=== PATIENT | female | born 1975 | race Asian ===

== ENCOUNTER 2024-12-06 07:43 | Inpatient (IN) | payer MEDICAID ==
[~2024-12-06] VITALS: Ht 149.9 cm; Wt 73.5 kg
[2024-12-06 13:45] LABS: GLUCOMETER DEV NAME(LOC) POC.BV; POC SARS-COV2 AG, FIA NEGATIVE (NEGATIVE)
[2024-12-06 14:00] VITALS: BP 140/89; PULSE 80; RESP 16; TEMP 97.8; O2SAT 100
[2024-12-06] MEDS: FOLIC ACID 1 MG TABLET PO SCH (17:24)
[2024-12-06] MEDS: BACITRACIN 28 GM OINTMENT TP SCH (17:25)
[2024-12-06] MEDS ORDERED: ALBUTEROL SULFATE HFA 90 MCG/PUFF 8 GM INHALER IH PRN (20:00)
[2024-12-06] MEDS ORDERED: NICOTINE 14 MG/24 HOUR PATCH TD PRN (20:00)
[2024-12-06] MEDS ORDERED: ACETAMINOPHEN 325 MG TABLET PO PRN (20:00)
[2024-12-06] MEDS ORDERED: MAGNESIUM HYDROXIDE SUSPENSION 30 ML UDCUP PO PRN (20:00)
[2024-12-06] MEDS ORDERED: LOPERAMIDE HCL 2 MG CAPSULE PO PRN (20:00)
[2024-12-06] MEDS ORDERED: MAG HYDROX/ALUMINUM HYD/SIMETH ES 30 ML SUSPENSION UDCUP PO PRN (20:00)
[2024-12-06] MEDS ORDERED: DOCUSATE SODIUM 100 MG CAPSULE PO PRN (20:00)
[2024-12-06] MEDS ORDERED: GuaiFENesin/D-METHORPHAN [SUGAR-FREE] 200-20MG/10 ML SYRUP UDCUP PO PRN (20:00)
[2024-12-06] MEDS ORDERED: ONDANSETRON 4 MG TABLET PO PRN (20:00)
[2024-12-06 20:37] VITALS: BP 113/69; PULSE 72; RESP 17; TEMP 98.3; O2SAT 98
[2024-12-06] MEDS: ATORVASTATIN CALCIUM 10 MG TABLET PO SCH (21:21)
[2024-12-07] MEDS: ZOLPIDEM TARTRATE 10 MG TABLET PO PRN (00:14)
[2024-12-07 08:40] VITALS: BP 124/80; PULSE 71; RESP 16; TEMP 98; O2SAT 98
[2024-12-07 09:07] LABS: PLATELET COUNT (AUTO) 329 K/uL (150-450); RED BLOOD CELL COUNT(AUTO) 4.38 MIL/uL (4.00-5.20); RED CELL DISTRIBUTION WIDTH 14.0 % (11.5-14.5); WHITE BLOOD COUNT (AUTO) 5.1 K/uL (4.5-11.0)
[2024-12-07 09:35] LABS: ASPARTATE AMINOTRANSFERASE 18 U/L (15-37); CALCIUM, TOTAL 9.0 mg/dL (8.8-10.5); CHOL/HDL RATIO 2.9 (3.9-5.7); CREATININE 0.92 mg/dL (0.60-1.30); GLOMERULAR FILTR. RATE CALC > 60 mL/min (>60); GLUCOSE,RANDOM 114 mg/dL (70-110); HCG,QUANTITATIVE 1 mIU/mL (0-6); LDL CHOL (CALC.) 115 mg/dL (0-130); SODIUM SERUM 137 mmol/L (136-145); TOTAL PROTEIN, SERUM 7.4 g/dL (6.4-8.2); UREA NITROGEN, BLOOD 7 mg/dL (7-18)
[2024-12-07 09:45] LABS: APPEARANCE,URINE HAZY (CLEAR); GLUCOSE, URINE (UA) NEGATIVE (NEGATIVE); LEUKOCYTE ESTERASE ,URINE NEGATIVE (NEGATIVE); NITRATE,URINE NEGATIVE (NEGATIVE); OCCULT BLOOD,URINE NEGATIVE (NEGATIVE); PH,URINE DRUG SCREEN 6.0 (5.0-8.0); SPECIFIC GRAVITIY, URINE 1.028 (1.003-1.030)
[2024-12-07 09:53] LABS: AMPHET/METH SCREEN,URINE NEGATIVE (NEGATIVE); BARBITURATE SCREEN, URINE NEGATIVE (NEGATIVE); CANNABINOID SCREEN,URINE POSITIVE (NEGATIVE); COCAINE SCREEN,URINE NEGATIVE (NEGATIVE); METHADONE SCREEN, URINE NEGATIVE (NEGATIVE)
[2024-12-07 10:02] LABS: ALCOHOL, URINE DRUG SCREEN NEGATIVE (NEGATIVE)
[2024-12-07] MEDS ORDERED: LITHIUM CARBONATE 600 MG CAPSULE PO SCH (11:15)
[2024-12-07] MEDS ORDERED: LITH600C PO (11:16)
[2024-12-07] MEDS ORDERED: QUET100T34 PO (11:16)
[2024-12-07] MEDS ORDERED: QUET300T19 PO (11:16)
[2024-12-07] MEDS: LITHIUM CARBONATE 300 MG CAPSULE PO SCH (12:16)
[2024-12-07] MEDS: NICOTINE POLACRILEX 2 MG LOZENGE PO PRN (12:36)
[2024-12-07 20:24] VITALS: RESP 18
[2024-12-08] MEDS: ETHYL ALCOHOL 62% ANTISEPTIC NASAL SANITIZER 0.6 ML AMPUL NASAL ONE (08:47)
[2024-12-08 10:35] VITALS: BP 125/69; PULSE 99; RESP 17; TEMP 98.7; O2SAT 95
[2024-12-08 20:25] VITALS: BP 110/71; PULSE 68; RESP 17; TEMP 98.2; O2SAT 99
[2024-12-08] MEDS: CHLORHEXIDINE GLUCONATE 2% TOWELETTE [2'S/6'S] TP SCH (21:17)
[2024-12-08] MEDS: ETHYL ALCOHOL 62% ANTISEPTIC NASAL SANITIZER 0.6 ML AMPUL NASAL SCH (21:17)
[2024-12-09 08:38] VITALS: BP 122/84; PULSE 95; RESP 18; TEMP 98.1; O2SAT 98
[2024-12-09 20:14] VITALS: BP 125/89; PULSE 84; RESP 18; TEMP 98.1; O2SAT 100
[2024-12-10 08:10] VITALS: BP 114/88; PULSE 92; RESP 17; TEMP 98.1; O2SAT 98
[2024-12-10] MEDS: PETROLATUM,WHITE 28 GM JELLY TP PRN (10:09)
[2024-12-10 20:05] VITALS: BP 118/82; PULSE 87; RESP 17; TEMP 98; O2SAT 99
[2024-12-11 08:39] VITALS: BP 104/68; PULSE 78; RESP 18; TEMP 97.9; O2SAT 100
[2024-12-11 20:10] VITALS: BP 108/71; PULSE 72; RESP 17; TEMP 99.7; O2SAT 97
[2024-12-12 08:14] VITALS: BP 99/62; PULSE 73; RESP 17; TEMP 98.1; O2SAT 98
[2024-12-12 20:10] VITALS: BP 120/74; PULSE 88; RESP 17; TEMP 98.6; O2SAT 99
[2024-12-13 08:23] VITALS: BP 102/86; PULSE 86; RESP 18; TEMP 98.1; O2SAT 100
[2024-12-13] MEDS: NICOTINE POLACRILEX 2 MG LOZENGE PO PRN (12:26)
[2024-12-13] MEDS: PREGABALIN 75 MG CAPSULE PO SCH (16:54)
[2024-12-13 20:07] VITALS: BP 124/84; PULSE 100; RESP 18; TEMP 97.9; O2SAT 99
[2024-12-14 08:15] VITALS: BP 111/85; PULSE 97; RESP 17; TEMP 98.4; O2SAT 100
[2024-12-14] MEDS ORDERED: LITH300C3 PO (11:35)
[2024-12-14] MEDS ORDERED: QUET100T PO (11:36)
[2024-12-14] MEDS ORDERED: QUET300T2 PO (11:36)
[2024-12-14] MEDS ORDERED: AMLO-258 PO (12:21)
[2024-12-14] MEDS ORDERED: ATOR10TA69 PO (12:21)
[2024-12-14] MEDS ORDERED: PREG75 PO (12:21)
== END 2024-12-14 17:21 | disposition home or self-care (01) | DRG 761 ==
LOC: B2S 12:40
PROVIDERS: ADMIT Psychiatry & Neurology Psychiatry; ATTEND Psychiatry & Neurology Psychiatry
PROC: GZHZZZZ Group Psychotherapy (ICD-10-PCS; principal; 2024-12-07)
PROC: GZ52ZZZ Individual Psychotherapy, Cognitive (ICD-10-PCS; 2024-12-07)
DX: F25.1 Schizoaffective disorder, depressive type (principal); R45.851 Suicidal ideations; E78.5 Hyperlipidemia, unspecified; I10 Essential (primary) hypertension; F43.12 Post-traumatic stress disorder, chronic; Z96.651 Presence of right artificial knee joint; Z20.822 Contact with and (suspected) exposure to COVID-19; G89.29 Other chronic pain; Z59.00 Homelessness unspecified; Z79.899 Other long term (current) drug therapy; Z88.6 Allergy status to analgesic agent; Z91.51 Personal history of suicidal behavior; M19.90 Unspecified osteoarthritis, unspecified site
CPT/HCPCS: 80053; 80061; 80178; 80307; 81003; 83036; 84436; 84443; 84702; 85025; 86592; 87081